=== PATIENT | female | born 1970 | race Caucasian/White ===

== ENCOUNTER → 2020-04-02 | Day surgery (SDC) | payer OTHER | END | disposition home or self-care (01) | LOC: FMAMMOTONE 10:10 | PROVIDERS: ATTEND Surgery | PROC: 0HBT3ZX Excision of Right Breast, Percutaneous Approach, Diagnostic (ICD-10-PCS; principal; 2020-04-02) | DX: D05.01 Lobular carcinoma in situ of right breast (principal); D24.1 Benign neoplasm of right breast; N60.91 Unspecified benign mammary dysplasia of right breast; N64.89 Other specified disorders of breast; R92.8 Other abnormal and inconclusive findings on diagnostic imaging of breast | CPT/HCPCS: 19081; 76098-TC-FY; 87899; 88305-TC; 88341-TC; 88342-TC; A4648 ==

== ENCOUNTER → 2020-05-01 | Day surgery (SDC) | payer OTHER | END | disposition home or self-care (01) | LOC: FRADUS-SUR 13:01 | PROVIDERS: ATTEND Surgery | PROC: 0HBT3ZX Excision of Right Breast, Percutaneous Approach, Diagnostic (ICD-10-PCS; principal; 2020-05-01) | DX: N60.11 Diffuse cystic mastopathy of right breast (principal); N60.12 Diffuse cystic mastopathy of left breast; N64.89 Other specified disorders of breast; N63.13 Unspecified lump in the right breast, lower outer quadrant | CPT/HCPCS: 19085; 77065-TC; 88305-TC; 88341-TC; 88342-TC ==

== ENCOUNTER 2020-06-17 04:51 | Day surgery (SDC) | payer OTHER ==
[2020-06-16 15:33] VITALS: BMI 24.8
[~2020-06-17 04:51] MED LIST: LIDOCAINE HCL 1%, 10 MG/ML (20ML VIAL) INF ONE
[2020-06-17] MEDS ORDERED: diazePAM 5 MG TABLET ONE (09:41)
[2020-06-17] MEDS ORDERED: diazePAM 5 MG TABLET PO ONE (09:47)
[2020-06-17] MEDS ORDERED: MIDAZOLAM HCL 2 MG/2 ML SINGLE DOSE VIAL ONE (10:29)
[2020-06-17] MEDS ORDERED: PROPOFOL 20 ML ONE (10:29)
[2020-06-17] MEDS ORDERED: SUCCINYLCHOLINE CHLORIDE 200 MG/10 ML SYRINGE ONE (10:40)
[2020-06-17] MEDS ORDERED: LIDOCAINE HCL 1%, 10 MG/ML (20ML VIAL) ONE (10:55)
[2020-06-17] MEDS ORDERED: ceFAZolin SODIUM 1 GM VIAL ONE (11:48)
[2020-06-17] MEDS ORDERED: KETOROLAC TROMETHAMINE 30 MG/1 ML VIAL ONE (11:48)
[2020-06-17] MEDS ORDERED: ceFAZolin 2 GRAM PREMIX BAG IVPB ONE (11:48)
[2020-06-17] MEDS ORDERED: DEXAMETHASONE SOD PHOSPHATE 4 MG/1 ML VIAL ONE (11:48)
[2020-06-17] MEDS ORDERED: LIDOCAINE HCL 1%, 10 MG/ML (20ML VIAL) INF ONE (12:15)
[2020-06-17] MEDS: oxyCODONE HCL 5 MG TABLET PO PRN ×2 (13:32→14:50)
[2020-06-17] MEDS ORDERED: ONDANSETRON 4 MG/2 ML VIAL IVPUSH PRN (13:32)
[2020-06-17] MEDS ORDERED: LACTATED RINGERS SOLUTION 1,000 ML IV SCH (13:45)
[2020-06-17] MEDS ORDERED: oxyCODONE HCL 5 MG TABLET ONE (15:15)
[2020-06-17 18:04] VITALS: TEMP 97.8
[2020-06-17 18:08] VITALS: BP 120/70; PULSE 78
== END 2020-06-17 16:30 | disposition home or self-care (01) ==
LOC: JASU-SURG 04:51
PROVIDERS: ATTEND Surgery
PROC: 0HBT0ZX Excision of Right Breast, Open Approach, Diagnostic (ICD-10-PCS; 2020-06-17)
PROC: 0HBT0ZZ Excision of Right Breast, Open Approach (ICD-10-PCS; principal; 2020-06-17 10:00)
DX: D05.01 Lobular carcinoma in situ of right breast (principal); D05.11 Intraductal carcinoma in situ of right breast
CPT/HCPCS: 19281; 19282; 76098-TC-FY; 84703; 88307-TC; 88341-TC; 88342-TC; 94760

== ENCOUNTER 2021-01-20 04:18 | Inpatient (IN) | payer OTHER ==
[2021-01-15 13:59] VITALS: BMI 25.8
[2021-01-20] MEDS ORDERED: ISOSULFAN BLUE 50 MG/5 ML VIAL SQ ONE (07:18)
[2021-01-20] MEDS ORDERED: METHYLENE BLUE 50 MG/10 ML AMPUL ONE (07:18)
[2021-01-20] MEDS ORDERED: ceFAZolin 2 GRAM PREMIX BAG IVPB ONE (09:30)
[2021-01-20] MEDS ORDERED: ONDANSETRON 4 MG/2 ML VIAL IVPUSH PRN (12:53)
[2021-01-20] MEDS ORDERED: oxyCODONE HCL 5 MG TABLET PO PRN ×2 (12:54)
[2021-01-20] MEDS ORDERED: ACETAMINOPHEN 1000 MG/100 ML VIAL (NON FORMULARY) IVPB ONE (12:54)
[2021-01-20] MEDS ORDERED: ONDANSETRON 4 MG/2 ML VIAL IVPB PRN (12:57)
[2021-01-20] MEDS ORDERED: ACETAMINOPHEN 500 MG TABLET (FP) PO PRN (12:57)
[2021-01-20] MEDS ORDERED: morphine SULFATE/PF 30 MG/30 ML *PCA* DISP.SYRIN PCA SCH (13:15)
[2021-01-20] MEDS: LACTATED RINGERS SOLUTION 1,000 ML IV SCH (13:45)
[2021-01-20] MEDS ORDERED: HYDROmorphone *PCA* 10MG/50ML DISP.SYRIN PCA SCH (14:30)
[2021-01-20] MEDS: ACETAMINOPHEN 500 MG TABLET (FP) PO SCH ×2 (15:00→19:00)
[2021-01-20] MEDS ORDERED: ALPRAZolam 1 MG TABLET PO PRN (15:14)
[2021-01-20] MEDS ORDERED: DEXTROSE 5%-WATER - 50 ML IVPB ONE ×2 (17:12→17:17)
[2021-01-20] MEDS ORDERED: ceFAZolin SODIUM 1 GM VIAL ONE ×2 (17:12→17:17)
[2021-01-20] MEDS: CEFAZOLIN 1 GM in DEXTROSE 5%-WATER - 1 GM/50 ML IVPB IVPB SCH (17:50)
[2021-01-20] MEDS ORDERED: CEFAZOLIN 1 GM in DEXTROSE 5%-WATER - 50 ML IVPB SCH (18:00)
[2021-01-20] MEDS ORDERED: CEFAZOLIN 1 GM/D5W 1 GM/50 ML BAG IVPB SCH (18:00)
[2021-01-21] MEDS ORDERED: DEXTROSE 5%-WATER - 50 ML IVPB ONE ×2 (02:32→09:21)
[2021-01-21] MEDS ORDERED: ceFAZolin SODIUM 1 GM VIAL ONE ×2 (02:32→09:21)
[2021-01-21] MEDS: CEFAZOLIN 1 GM in DEXTROSE 5%-WATER - 1 GM/50 ML IVPB IVPB SCH ×2 (02:34→09:38)
[2021-01-21] MEDS: ACETAMINOPHEN 500 MG TABLET (FP) PO SCH ×4 (02:36→18:40)
[2021-01-21] MEDS ORDERED: oxyCODONE HCL 5 MG TABLET PO PRN (11:45)
[2021-01-21] MEDS ORDERED: DOCUSATE SODIUM 100 MG CAPSULE (FP) PO PRN (11:48)
[2021-01-21] MEDS: LACTATED RINGERS SOLUTION 1,000 ML IV SCH (13:05)
[2021-01-21] MEDS ORDERED: PCA PUMP NR ONE (13:05)
[2021-01-21] MEDS: CEPHALEXIN MONOHYDRATE 500 MG CAPSULE (UD) PO SCH ×2 (13:06→21:09)
[2021-01-21] MEDS: oxyCODONE HCL 5 MG TABLET PO PRN ×2 (14:36→21:09)
[2021-01-22] MEDS: oxyCODONE HCL 5 MG TABLET PO PRN ×5 (02:01→22:02)
[2021-01-22] MEDS: ACETAMINOPHEN 500 MG TABLET (FP) PO SCH ×4 (02:01→21:57)
[2021-01-22] MEDS: CEPHALEXIN MONOHYDRATE 500 MG CAPSULE (UD) PO SCH ×3 (06:28→21:57)
[2021-01-23] MEDS: ACETAMINOPHEN 500 MG TABLET (FP) PO SCH ×2 (00:46→06:06)
[2021-01-23] MEDS: oxyCODONE HCL 5 MG TABLET PO PRN ×4 (05:58→22:42)
[2021-01-23] MEDS: CEPHALEXIN MONOHYDRATE 500 MG CAPSULE (UD) PO SCH ×3 (05:59→22:42)
[2021-01-24] MEDS: CEPHALEXIN MONOHYDRATE 500 MG CAPSULE (UD) PO SCH ×3 (06:03→21:55)
[2021-01-24] MEDS: oxyCODONE HCL 5 MG TABLET PO PRN ×4 (06:03→22:54)
[2021-01-24] MEDS ORDERED: PT OWN MED DRAWER 7, Y5N ONE (14:51)
[2021-01-25] MEDS: oxyCODONE HCL 5 MG TABLET PO PRN ×3 (04:34→20:29)
[2021-01-25] MEDS: CEPHALEXIN MONOHYDRATE 500 MG CAPSULE (UD) PO SCH ×3 (06:37→21:25)
[2021-01-25] MEDS ORDERED: oxyCODONE HCL 5 MG TABLET PO PRN (19:50)
[2021-01-25] MEDS ORDERED: ALPRAZolam 1 MG TABLET PO PRN (19:51)
[2021-01-26] MEDS: oxyCODONE HCL 5 MG TABLET PO PRN ×5 (01:38→21:44)
[2021-01-26] MEDS: CEPHALEXIN MONOHYDRATE 500 MG CAPSULE (UD) PO SCH ×3 (05:13→21:24)
[2021-01-27 02:27] VITALS: PULSE 91
[2021-01-27] MEDS: oxyCODONE HCL 5 MG TABLET PO PRN ×2 (03:14→09:20)
[2021-01-27] MEDS: CEPHALEXIN MONOHYDRATE 500 MG CAPSULE (UD) PO SCH (06:25)
[2021-01-27 06:42] VITALS: BP 103/63; TEMP 98.2
== END 2021-01-27 13:30 | disposition home or self-care (01) | DRG 362 ==
LOC: J2C 04:18 → EDSTATUS 08:00 → J8W 14:23
PROVIDERS: ADMIT Surgery; ATTEND Surgery
PROC: 0HHT0NZ Insertion of Tissue Expander into Right Breast, Open Approach (ICD-10-PCS; 2021-01-20)
PROC: 0HTT0ZZ Resection of Right Breast, Open Approach (ICD-10-PCS; principal; 2021-01-20 08:30)
PROC: 07B50ZX Excision of Right Axillary Lymphatic, Open Approach, Diagnostic (ICD-10-PCS; 2021-01-20 08:30)
DX: D05.11 Intraductal carcinoma in situ of right breast (principal); I10 Essential (primary) hypertension; F17.210 Nicotine dependence, cigarettes, uncomplicated
CPT/HCPCS: 78195-TC; 81025; 94010; 94760; 97116-GP; 97161-GP; A9541; J0131; Q9968

== ENCOUNTER 2021-03-03 07:33 | Day surgery (SDC) | payer OTHER ==
[2021-02-26 18:31] VITALS: BMI 25.6
[2021-03-03] MEDS ORDERED: PROPOFOL 20 ML ONE (07:46)
[2021-03-03] MEDS ORDERED: ROCURONIUM BROMIDE 50 MG/5 ML SYRINGE ONE (07:46)
[2021-03-03] MEDS ORDERED: MIDAZOLAM HCL 2 MG/2 ML SINGLE DOSE VIAL ONE (07:46)
[2021-03-03] MEDS ORDERED: ceFAZolin SODIUM 1 GM VIAL ONE (09:17)
[2021-03-03] MEDS ORDERED: LACTATED RINGERS SOLUTION 1,000 ML IV SCH (10:15)
[2021-03-03] MEDS ORDERED: ONDANSETRON 4 MG/2 ML VIAL IVPUSH PRN (10:15)
[2021-03-03] MEDS: DEXTROSE 5%-0.45% SALINE 1,000 ML IV SCH (14:14)
[2021-03-03] MEDS: CEFAZOLIN 1 GM/D5W 1 GM/50 ML BAG IVPB SCH ×2 (15:03→20:41)
[2021-03-03] MEDS: oxyCODONE HCL 5 MG TABLET PO PRN ×2 (19:27→23:41)
[2021-03-03] MEDS: ACETAMINOPHEN 325 MG TABLET (FP) PO PRN (20:41)
[2021-03-04] MEDS: ACETAMINOPHEN 325 MG TABLET (FP) PO PRN ×5 (03:28→22:08)
[2021-03-04] MEDS: oxyCODONE HCL 5 MG TABLET PO PRN ×6 (03:29→22:04)
[2021-03-04] MEDS: CEFAZOLIN 1 GM/D5W 1 GM/50 ML BAG IVPB SCH ×2 (03:29→09:07)
[2021-03-04] MEDS: DEXTROSE 5%-0.45% SALINE 1,000 ML IV SCH (18:08)
[2021-03-05] MEDS: oxyCODONE HCL 5 MG TABLET PO PRN ×5 (02:44→20:52)
[2021-03-05] MEDS ORDERED: LOCK ITEM NR ONE ×2 (06:03→06:19)
[2021-03-05] MEDS: ACETAMINOPHEN 325 MG TABLET (FP) PO PRN ×4 (06:53→20:51)
[2021-03-05] MEDS: DEXTROSE 5%-0.45% SALINE 1,000 ML IV SCH (13:04)
[2021-03-06] MEDS: oxyCODONE HCL 5 MG TABLET PO PRN ×5 (01:09→18:29)
[2021-03-06] MEDS: ACETAMINOPHEN 325 MG TABLET (FP) PO PRN (06:10)
[2021-03-06] MEDS ORDERED: LORazepam 0.5 MG TABLET PO ONE (12:45)
[2021-03-06 13:50] VITALS: BP 102/63; PULSE 94; TEMP 98
[2021-03-06] MEDS: DEXTROSE 5%-0.45% SALINE 1,000 ML IV SCH (17:34)
== END 2021-03-06 18:46 | disposition home or self-care (01) ==
LOC: FASUSAT 07:33 → FASU 07:33 → FM/S 11:17 → UNDOADMIN 11:25 → FM/S 12:10 → FASUSAT 03-06 18:46
PROVIDERS: ATTEND Plastic Surgery
PROC: 0JB60ZZ Excision of Chest Subcutaneous Tissue and Fascia, Open Approach (ICD-10-PCS; 2021-03-03)
PROC: 0HPT0NZ Removal of Tissue Expander from Right Breast, Open Approach (ICD-10-PCS; principal; 2021-03-03 09:26)
DX: L76.82 Other postprocedural complications of skin and subcutaneous tissue (principal); Y83.8 Other surgical procedures as the cause of abnormal reaction of the patient, or of later complication, without mention of misadventure at the time of the procedure; Y82.8 Other medical devices associated with adverse incidents; Y92.9 Unspecified place or not applicable
CPT/HCPCS: 81025; 94010; 94760